=== PATIENT | female | born 1965 | race Caucasian/White ===

== ENCOUNTER 2016-11-04 18:27 | Emergency (ER) | payer OTHER ==
[2016-11-04 18:33] VITALS: BP 121/78; PULSE 100; TEMP 102.6; BMI 29.2
[2016-11-04] MEDS ORDERED: IBUPROFEN 400 MG TABLET (FP) PO ONE ×2 (21:27→22:01)
[2016-11-04 21:53] LABS: URINE APPEARANCE CLEAR; URINE BILIRUBIN NEGATIVE (NEGATIVE); URINE COLOR STRAW; URINE GLUCOSE (UA) NEGATIVE (NEGATIVE); URINE KETONE NEGATIVE (NEGATIVE); URINE LEUK ESTERASE NEGATIVE (NEGATIVE); URINE NITRITE NEGATIVE (NEGATIVE); URINE UROBILINOGEN NEGATIVE E.U./dl (0.2-1.0)
[2016-11-04 21:55] LABS: URINE BLOOD 3+ (NEGATIVE); URINE PROTEIN 2+ (NEGATIVE)
[2016-11-04 21:57] LABS: URINE BACTERIA RARE /hpf (NONE SEEN); URINE MUCUS RARE; URINE RBC 66 /hpf (0-3); URINE WBC 2 /hpf (3-5)
--- NOTE | 2016-11-04 22:51 | PDOC ---
History of Present Illness - General Chief Complaint: Cold Symptoms Stated Complaint: FEVER/SORE THROAT Time Seen by Provider: 11/04/16 21:04 History Source: Patient Exam Limitations: No Limitations - History of Present Illness Initial Comments: 11/04/16 22:48 CC fever, sore throat x 3 days; no NVD Severity: mild Associated Symptoms: reports: denies symptoms, cough, fever/chills, headaches, malaise. denies: nausea/vomiting Past History - Past Medical History Allergies/Adverse Reactions: Allergies Allergy/AdvReac Type Severity Reaction Status Date / Time No Known Allergies Allergy Verified 11/04/16 18:34 Home Medications: Ambulatory Orders No Home Medications 0 dose .ROUTE UTDICT 12/28/13 Anemia: No Cancer: No Cardiac Disorders: No COPD: No Diabetes: No HTN: No Suicide Attempt (Hx): No - Psycho/Social/Smoking Cessation Hx Suicidal Ideation: No Smoking Status: No Smoking History: Never smoked Number of Cigarettes Smoked Daily: 0 Information on smoking cessation initiated: No Review of Systems - Review of Systems Constitutional: Yes: Chills, Fever, Malaise. No: Symptoms Reported HEENTM: Yes: Nose Pain, Nose Congestion Respiratory: Yes: Cough. No: Symptoms reported, Stridor, Wheezing, Hemoptysis ABD/GI: Yes: Diarrhea (x 3 days ago). No: Symptoms Reported, Nausea, Vomiting *Physical Exam - Vital Signs Last Vital Signs Temp Pulse Resp BP Pulse Ox 102.6 F H 100 H 18 121/78 97 11/04/16 18:30 11/04/16 18:30 11/04/16 18:30 11/04/16 18:30 11/04/16 18:30 - Physical Exam HEENT: positive: TMs Normal, Pharynx Normal (post nasal drip) Neck: positive: Supple. negative: Tender, Rigid, Lymphadenopathy (R), Lymphadenopathy (L) Respiratory/Chest: positive: Lungs Clear. negative: Chest Tender, Labored Respiration Cardiovascular: positive: Regular Rhythm, Regular Rate. negative: Murmur Gastrointestinal/Abdominal: positive: Normal Bowel Sounds, Soft. negative: Tender, Organomegaly ED Treatment Course - ADDITIONAL ORDERS Additional order review: Laboratory Results 11/04/16 21:40 Urine Color Straw Urine Appearance Clear Urine pH 6.0 Ur Specific [place] 1.010 Urine Protein 2+ H Urine Glucose (UA) Negative Urine Ketones Negative Urine Blood 3+ H Urine Nitrite Negative Urine Bilirubin Negative Urine Urobilinogen Negative Ur Leukocyte Esterase Negative Urine RBC 66 Urine WBC 2 Ur Epithelial Cells Rare Urine Bacteria Rare Urine Mucus Rare Urine HCG, Qual Negative - RADIOLOGY Radiology Studies Ordered: Category Date Time Status CHEST PA & LAT [RAD] Stat Radiology 11/04/16 21:27 Taken - Medications Given in the ED: ED Medications Discontinued Medications Generic Name Dose Route Start Last Admin Trade Name Freq PRN Reason Stop Dose Admin Ibuprofen 400 mg 11/04/16 21:27 11/04/16 22:02 Motrin - PO 11/04/16 21:28 400 mg ONCE ONE Administration Medical Decision Making - Medical Decision Making 11/04/16 22:50 feeling better post motrin; chest xray= negative *DC/Admit/Observation/Transfer Diagnosis at time of Disposition: Viral respiratory infection - Discharge Dispostion Disposition: HOME Condition at time of disposition: Stable Admit: No - Patient Instructions Additional Instructions: motrin for fever; rest at home - Post Discharge Activity Work/School Note: Back to Work
== END 2016-11-04 22:56 | disposition home or self-care (01) ==
LOC: JERFT 18:27
DX: J06.9 Acute upper respiratory infection, unspecified (principal); B97.89 Other viral agents as the cause of diseases classified elsewhere
CPT/HCPCS: 71020-TC; 81003; 81015; 84703; 99281-25

== ENCOUNTER 2018-07-17 05:26 | Day surgery (SDC) | payer OTHER ==
[2018-07-16 16:46] VITALS: BMI 29.8
--- NOTE | 2018-07-17 11:34 | HP ---
History & Physical Update - History History: No Change Currently as noted:: Left Bartholin Cyst - Physical Physical: No Change - Assessment Assessment: No Change - Plan Plan: No Change Currently as noted:: Left Bartholin cyst marsupialization
[2018-07-17] MEDS ORDERED: MIDAZOLAM HCL 2 MG/2 ML SINGLE DOSE VIAL ONE (11:35)
[2018-07-17] MEDS ORDERED: PROPOFOL 20 ML ONE ×2 (11:41)
--- NOTE | 2018-07-17 12:24 | OP ---
Operative Note - Note: Operative Date: 07/17/18 Pre-Operative Diagnosis: Left Bartolin cyst Operation: Marsupialization of left Bartholin cyst Findings: Left Bartholin cyst Post-Operative Diagnosis: Same as Pre-op Surgeon: Bird Gross Supervisor [employer]: Joseph Mcgovern Anesthesiologist/FINANCIAL AID ADVISOR: Dior Pro MD Anesthesia: General Estimated Blood Loss (mls): 5 Blood Volume Replaced (mls): 0 Fluid Volume Replaced (mls): 700 Operative Report Dictated: Yes
[2018-07-17 13:57] VITALS: TEMP 97.4
--- NOTE | 2018-07-17 15:05 | OP ---
DATE OF OPERATION: 07/17/2018 PREOPERATIVE DIAGNOSIS: Left Bartholins cyst. POSTOPERATIVE DIAGNOSIS: Left Bartholins cyst. PROCEDURE: Marsupialization of left Bartholins cyst. SURGEON: Bird Gross MD TAILOR'S AIDE: Joseph Mcgovern MD ANESTHESIA: General. ANESTHESIOLOGIST: Dior Pro MD COMPLICATIONS: None. ESTIMATED BLOOD LOSS: 5 mL. INTRAVENOUS FLUIDS: 700 mL. FINDINGS: Examination under anesthesia revealed a large left Bartholins cyst tracking deep into the left labia and with fluctuance. Upon incision, serosanguinous as well as thick fibrinous material was evacuated. DESCRIPTION OF PROCEDURE: The patient was met preoperatively. Risks, benefits, and alternatives of surgery were discussed. All questions were answered. The patient verbalized understanding and agreed to proceed with the surgery. The consent form was also reviewed, and once again, all questions were answered. The patient signed the consent form and requested to proceed. The patient was then brought to the OR with IV running. She was placed on the surgical table in the supine position. General anesthesia was achieved without difficulty. The patient was then placed in a dorsal lithotomy position using adjustable Sam stirrups. She was examined under anesthesia with the findings as described above. The patient was then prepped and draped in the usual sterile fashion. A time-out procedure was conducted as per standard protocol. The left Bartholins cyst was then identified, and an incision was made inside the vagina behind the hymenal ring. The incision was carried down to the inside of the Bartholins cyst. The cyst was opened and all of the contents were evacuated. The internal space of the cyst was explored to break down all of the adhesions and loculations. There was no evidence of infection. Some of the cyst material showed blood clots as well as serosanguinous and fibrinous material. At that point, the edges of the wound were sutured to approximate the cyst capsule with the vaginal mucosa. The wound was sutured with several 2-0 interrupted sutures circumferentially. Care was taken to achieve good hemostasis. Once this was accomplished, the patient was examined, and there was no residual cyst. Once again, good hemostasis was noted. The wound was irrigated. Once again, good hemostasis was noted. At that point, the procedure was terminated. The patient was placed in a supine position and transferred to recovery room in stable condition. Sponge, lap, and instrument counts were correct. Chucky [id number]
[2018-07-17 15:43] VITALS: BP 110/75; PULSE 65
== END 2018-07-17 15:40 | disposition home or self-care (01) ==
LOC: JASU-SURG 05:26
PROVIDERS: ATTEND Obstetrics & Gynecology
PROC: 0U9L0ZZ Drainage of Vestibular Gland, Open Approach (ICD-10-PCS; principal; 2018-07-17 11:00)
DX: N75.0 Cyst of Bartholin's gland (principal)
CPT/HCPCS: 94010; 94760

== ENCOUNTER 2019-06-07 02:35 | Inpatient (IN) | payer OTHER ==
[2019-06-07 02:43] VITALS: BMI 27.8
[2019-06-07] MEDS ORDERED: morphine CARPU-JECT 4 MG/1 ML DISP.SYRIN IVPUSH ONE (02:44)
--- NOTE | 2019-06-07 03:01 | PDOC ---
History of Present Illness - General Chief Complaint: Injury Stated Complaint: RIGHT ANKLE PAIN Time Seen by Provider: 06/07/19 02:43 History Source: Patient, Family Exam Limitations: Language Barrier - History of Present Illness Initial Comments: 06/07/19 02:59 54y F with no significant PMH presenting to ED with complaints of R ankle pain after missing a step. Patient was going down the stairs for work when she missed a step due it it being dark and she twisted the R ankle. She did not hit her head or lose consciousness. Family called EMS. Pt endorses pain in the ankle. Denies numbness/tingling, back pain, knee pain, hip pain. PMD: PMH: none PSH: none Meds: none Allergies: nkda Past History - Past Medical History Allergies/Adverse Reactions: Allergies Allergy/AdvReac Type Severity Reaction Status Date / Time No Known Allergies Allergy Verified 06/07/19 02:42 Home Medications: Ambulatory Orders Cephalexin Monohydrate [Keflex -] 500 mg PO BID 7 Days #14 capsule 07/17/18 Ibuprofen [Motrin -] 600 mg PO QID PRN #28 tablet 07/17/18 Anemia: No Asthma: No Cancer: No Cardiac Disorders: No CVA: No COPD: No CHF: No Dementia: No Diabetes: No GI Disorders: No Disorders: No HTN: No Hypercholesterolemia: No Liver Disease: No Seizures: No Thyroid Disease: No - Psycho Social/Smoking Cessation Hx Smoking Status: No Smoking History: Never smoked Number of Cigarettes Smoked Daily: 0 Hx Alcohol Use: No Drug/Substance Use Hx: No Substance Use Type: Alcohol Review of Systems - Review of Systems Constitutional: No: Symptoms Reported HEENTM: No: Symptoms Reported Respiratory: No: Symptoms reported Cardiac (ROS): No: Symptoms Reported ABD/GI: No: Symptoms Reported : No: Symptoms Reported Musculoskeletal: Yes: See HPI Integumentary: No: Symptoms Reported Neurological: No: Symptoms reported *Physical Exam - Vital Signs Last Vital Signs Temp Pulse Resp BP Pulse Ox 97.8 F 81 16 163/92 100 06/07/19 02:40 06/07/19 02:40 06/07/19 02:40 06/07/19 02:40 06/07/19 02:40 - Physical Exam General Appearance: Yes: Nourished, Appropriately Dressed, Severe Distress HEENT: positive: EOMI, RUTHANN Neck: positive: Trachea midline, Supple Respiratory/Chest: positive: Lungs Clear, Normal Breath Sounds. negative: Crackles, Rales, Rhonchi, Stridor, Wheezing Cardiovascular: positive: Regular Rhythm, Regular Rate, S1, S2. negative: Edema , JVD, Murmur Vascular Pulses: Dorsalis-Pedis (R): 2+, Doralis-Pedis (L): 2+ Gastrointestinal/Abdominal: positive: Normal Bowel Sounds, Soft. negative: Tender Musculoskeletal: positive: Other (R ankle swelling and tendernes to palpation) Extremity: positive: Normal Capillary Refill. 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 NML intact, Fully Oriented, Alert, Normal Mood/ Affect, Normal Response, Motor Strength 5/5 Procedures - Splinting Splint Location: Right: Ankle Hand-Made Type: orthoglass Splint Type: Yes: Posterior Post-Proc Neuro Vasc Exam: normal Poncho Bandage: yes Sling: No Complications: No ED Treatment Course - LABORATORY CBC & Chemistry Diagram: 06/07/19 03:05 06/07/19 06:09 - RADIOLOGY Radiology Studies Ordered: Category Date Time Status ANKLE & FOOT-RIGHT* [RAD] Stat Radiology 06/07/19 02:43 Ordered Medical Decision Making - Medical Decision Making 06/07/19 06:31 54y F presenting to ED with complaitns of R ankle pain vitals wnl ddx: likely fracture w/wo dislocation, ligamentous injury -morphine -xr -preop labs trimaleolar fracture seen on xr without dislocation ortho consulted: posterior splint w f/u. splint placed. -toradol. due to patient being in hospital, difficulty with amulation with crutches and pain, will have ortho see patient here in hospital. pt pain controlled at the moment. ortho paged again at 0630 06/07/19 06:50 06/07/19 07:07 waiting for ortho consult signed out to day team Discharge - Discharge Information Problems reviewed: Yes Clinical Impression/Diagnosis: Trimalleolar fracture Qualifiers: Encounter type: initial encounter Fracture type: closed Laterality: right Qualified Code(s): S82.851A - Displaced trimalleolar fracture of right lower leg , initial encounter for closed fracture Condition: Good Disposition: HOME - Admission No - Follow up/Referral Referrals: Adrien Rain MD [Primary Care Provider] - Jerman Pena MD [Staff Physician] - Manny Marquez MD [Staff Physician] - - Patient Discharge Instructions Patient Printed Discharge Instructions: DI for Ankle Fracture Additional Instructions: You were seen in the emergency room today for an ankle fracture. It is called a trimaleolar fracture. You need to see the orthopedist today between 8am and 12pm. The contact information is provided below. Do not put any weight on the right foot! You can take Tylenol or ibuprofen for the pain as needed. Come back to the emergency room - Post Discharge Activity
[2019-06-07] MEDS ORDERED: morphine SULFATE 4 MG/ML VIAL ONE (03:22)
[2019-06-07 03:24] LABS: BASO % 0.8 % (0-2.0); HEMATOCRIT 38.2 % (32.4-45.2); HEMOGLOBIN 13.1 GM/dL (10.7-15.3); LYMPH % 37.8 % (8-40); MCH 28.6 pg (25.7-33.7); MCHC 34.3 g/dl (32.0-36.0); MEAN CELL VOLUME 83.4 fl (80-96); NEUT % 53.4 % (42.8-82.8); PLATELET COUNT 345 K/MM3 (134-434); RBC 4.59 M/mm3 (3.60-5.2); RDW 15.5 % (11.6-15.6); WHITE BLOOD COUNT 9.1 K/mm3 (4.0-10.0)
--- NOTE | 2019-06-07 03:58 | PDOC ---
Attending Attestation - Resident Resident Name: Kristel Kwong - ED Attending Attestation I have performed the following: I have examined & evaluated the patient, The case was reviewed & discussed with the resident, I agree w/resident's findings & plan - HPI HPI: 06/07/19 05:00 Pt was ouside of her home going to work; streetlights don't work and she couldn' t see the pavement and steps and she fell and broke her ankle. Now with exquisite pain. 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 She has swollen and deformed right ankle. - Physicial Exam PE: 06/07/19 05:02 Agree with resident exam Pt has normal DP and PT pulses; however she has exquisite tenderness with palpation of the ankle lateral mal and medial mal. - Medical Decision Making 06/07/19 03:57 Pt has a trimalleolar fracture 06/07/19 05:08 Ortho will see her in the office or in the ER today btwn 8am and 12noon. Pt in exquisite pain and she will be treated with more morphine; unable to ambulate with crutches with morphone on board.
[2019-06-07] MEDS ORDERED: KETOROLAC TROMETHAMINE 15 MG/ML VIAL IVPUSH ONE (04:24)
[2019-06-07] MEDS ORDERED: KETOROLAC TROMETHAMINE 15 MG/ML VIAL ONE (04:44)
[2019-06-07 06:39] LABS: BILIRUBIN,TOTAL 0.3 mg/dL (0.2-1); BLOOD UREA NITROGEN 14.6 mg/dL (7-18); CALCIUM 8.2 mg/dL (8.5-10.1); CREATININE 0.9 mg/dL (0.55-1.3); POTASSIUM 3.7 mmol/L (3.5-5.1); TOT PROT 6.6 g/dl (6.4-8.2)
--- NOTE | 2019-06-07 07:39 | PDOC ---
*Physical Exam - Vital Signs Last Vital Signs Temp Pulse Resp BP Pulse Ox 98.6 F 68 18 143/80 98 06/07/19 06:31 06/07/19 06:31 06/07/19 06:31 06/07/19 06:31 06/07/19 06:31 ED Treatment Course - LABORATORY CBC & Chemistry Diagram: 06/07/19 03:05 06/07/19 06:09 - ADDITIONAL ORDERS Additional order review: Laboratory Results 06/07/19 06/07/19 06/07/19 06:09 06:09 06:09 PT with INR INR PTT (Actin FS) 38.5 H Sodium 141 Potassium 3.7 Chloride 108 H Carbon Dioxide 28 Anion Gap 6 L BUN 14.6 Creatinine 0.9 Est GFR (CKD-EPI)AfAm 85.20 Est GFR (CKD-EPI)NonAf 73.51 Random Glucose 143 H Calcium 8.2 L Total Bilirubin 0.3 AST 17 ALT 22 Alkaline Phosphatase 122 H Total Protein 6.6 Albumin 3.0 L Blood Type A POSITIVE Antibody Screen Negative 06/07/19 06/07/19 06/07/19 03:05 03:05 03:05 PT with INR Cancelled INR Cancelled PTT (Actin FS) Sodium Cancelled Potassium Cancelled Chloride Cancelled Carbon Dioxide Cancelled Anion Gap Cancelled BUN Cancelled Creatinine Cancelled Est GFR (CKD-EPI)AfAm Cancelled Est GFR (CKD-EPI)NonAf Cancelled Random Glucose Cancelled Calcium Cancelled Total Bilirubin Cancelled AST Cancelled ALT Cancelled Alkaline Phosphatase Cancelled Total Protein Cancelled Albumin Cancelled Blood Type Cancelled Antibody Screen Cancelled 06/07/19 03:05 PT with INR INR PTT (Actin FS) Cancelled Sodium Potassium Chloride Carbon Dioxide Anion Gap BUN Creatinine Est GFR (CKD-EPI)AfAm Est GFR (CKD-EPI)NonAf Random Glucose Calcium Total Bilirubin AST ALT Alkaline Phosphatase Total Protein Albumin Blood Type Antibody Screen 06/07/19 03:05 RBC 4.59 MCV 83.4 MCHC 34.3 RDW 15.5 MPV 9.0 D Neutrophils % 53.4 Lymphocytes % 37.8 D Monocytes % 6.0 Eosinophils % 2.0 Basophils % 0.8 - Medications Given in the ED: ED Medications Discontinued Medications Generic Name Dose Route Start Last Admin Trade Name Freq PRN Reason Stop Dose Admin Ketorolac Tromethamine 15 mg 06/07/19 04:24 06/07/19 05:18 Toradol Injection - IVPUSH 06/07/19 04:25 15 mg ONCE ONE Administration Morphine Sulfate 4 mg 06/07/19 02:44 06/07/19 03:36 Morphine Injection - IVPUSH 06/07/19 02:45 4 mg ONCE ONE Administration Medical Decision Making - Medical Decision Making 06/07/19 07:24 54y F with no significant PMH presenting to ED with here with right ankle trimaleolar fx found on XR. Pain improved with morphine and toradol. Ortho consulted and placed in a posterior splint; will assess patient this AM Vitals stable. Pain controlled at rest. No current complaints. Awaiting ortho eval 06/07/19 09:00 Ortho to take to OR in PM NPO, pain control EKG, 2nd T&S sent Admit to hospitalist; per ortho will likely stay at least [address] Webber Discharge - Discharge Information Problems reviewed: Yes Clinical Impression/Diagnosis: Trimalleolar fracture Qualifiers: Encounter type: initial encounter Fracture type: closed Laterality: right Qualified Code(s): S82.851A - Displaced trimalleolar fracture of right lower leg , initial encounter for closed fracture Condition: Good - Admission Yes - Follow up/Referral - Patient Discharge Instructions - Post Discharge Activity
[2019-06-07 07:45] LABS: INR 1.07 (0.83-1.09); PROTHROMBIN TIME (PATIENT) 12.6 SEC (9.7-13.0)
--- NOTE | 2019-06-07 08:32 | CON.ORTH ---
Consult Reason for Consultation:: right ankle fx - Alcohol/Substance Use Hx Alcohol Use: No - Smoking History Smoking history: Never smoked Aproximately how many cigarettes per day: 0 Home Medications - Allergies Allergies/Adverse Reactions: Allergies Allergy/AdvReac Type Severity Reaction Status Date / Time No Known Allergies Allergy Verified 06/07/19 02:42 - Home Medications Home Medications: Ambulatory Orders Cephalexin Monohydrate [Keflex -] 500 mg PO BID 7 Days #14 capsule 07/17/18 Ibuprofen [Motrin -] 600 mg PO QID PRN #28 tablet 07/17/18 Physical Exam for Ortho Vital Signs: Vital Signs Temperature 98.6 F 06/07/19 06:31 Pulse Rate 68 06/07/19 06:31 Respiratory Rate 18 06/07/19 06:31 Blood Pressure 143/80 06/07/19 06:31 O2 Sat by Pulse Oximetry (%) 98 06/07/19 06:31 Labs: CBC, BMP 06/07/19 03:05 06/07/19 06:09 INR, PTT INR 1.07 (0.83-1.09) 06/07/19 06:09 - Lower Extremity Ankle: Yes: Right, Limited ROM, Pain, Swelling, Tenderness, Other (splint intact , nvi) Imaging - Results X-ray: Image Reviewed Assessment/Plan 54y F with no significant PMH presenting to ED with complaints of R ankle pain after missing a step. Patient was going down the stairs for work when she missed a step due it it being dark and she twisted the R ankle. She did not hit her head or lose consciousness. Family called EMS. Pt endorses pain in the ankle. Denies numbness/tingling, back pain, knee pain, hip pain. a/p right ankle displaced trimall fx Risks and benefits were d/w pt in detail OR today for ORIF surgical clearance NPO d/w Dr. Marquez
[2019-06-07] MEDS ORDERED: morphine CARPU-JECT 2 MG/1 ML DISP.SYRIN IVPUSH ONE (08:51)
[2019-06-07] MEDS ORDERED: MORPHINE SULFATE 2 MG/ML VIAL ONE (08:58)
--- NOTE | 2019-06-07 09:39 | HP ---
CHIEF COMPLAINT: R ankle pain s/p mechanical fall PCP: Dr. Rain HISTORY OF PRESENT ILLNESS: 54F w/ no significant pmhx presents in the ED for R ankle pain. States this morning when she was leaving his apartment building, it was dark and she missed a step walking out of her building. Denies head trauma or loc after her fall. States this is the first time she has had a mechanical fall. Denies any headache /dizziness, chest pain, sob, or other associated symptoms prior to the fall. Pt says she twisted her R ankle and was unable to move it due to severe pain. Also admits to scraping her L knee on the concrete after she fell, but reports only minimal pain and is still able to move her L leg. Denies numbness or tingling in legs, back pain, hip pain or knee pain. 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 Home Medications Medication Instructions Recorded NK [No Known Home Medication] 06/07/19 REVIEW OF SYSTEMS CONSTITUTIONAL: Absent: fever, chills, diaphoresis, generalized weakness, malaise, loss of appetite, weight change HEENT: Absent: rhinorrhea, nasal congestion, throat pain, throat swelling, difficulty swallowing, mouth swelling, ear pain, eye pain, visual changes CARDIOVASCULAR: Absent: chest pain, syncope, palpitations, irregular heart rate, lightheadedness , peripheral edema RESPIRATORY: Absent: cough, shortness of breath, dyspnea with exertion, orthopnea, wheezing, stridor, hemoptysis GASTROINTESTINAL: Absent: abdominal pain, abdominal distension, nausea, vomiting, diarrhea, constipation, melena, hematochezia GENITOURINARY: Absent: dysuria, frequency, urgency, hesitancy, hematuria, flank pain, genital pain MUSCULOSKELETAL: +R ankle pain, limited ROM, R ankle swelling Absent: myalgia, arthralgia, joint swelling, back pain, neck pain SKIN: Absent: rash, itching, pallor HEMATOLOGIC/IMMUNOLOGIC: Absent: easy bleeding, easy bruising, lymphadenopathy, frequent infections ENDOCRINE: Absent: unexplained weight gain, unexplained weight loss, heat intolerance, cold intolerance NEUROLOGIC: Absent: headache, focal weakness or paresthesias, dizziness, unsteady gait, seizure, mental status changes, bladder or bowel incontinence PSYCHIATRIC: Absent: anxiety, depression, suicidal or homicidal ideation, hallucinations. PHYSICAL EXAMINATION Vital Signs - 24 hr 06/07/19 06/07/19 06/07/19 02:40 06:31 09:22 Temperature 97.8 F 98.6 F 98.1 F Pulse Rate 81 Pulse Rate [ 68 67 Left Brachial] Respiratory 16 18 18 Rate Blood Pressure 163/92 Blood Pressure 143/80 125/70 [Left Arm] O2 Sat by Pulse 100 98 99 Oximetry (%) GENERAL: AAOx3. NAD. HEENT: AT/NC. EOMI. MMM. Facial symmetry noted. NECK: Normal range of motion, supple without lymphadenopathy, JVD, or masses. LUNGS: CTA B/L. No wheezes, rhonchi or rales noted. Symmetric chest rise. HEART: RRR. Normal S1, S2. No murmurs noted. ABDOMEN: Soft, NT/ND. Normoactive bowel sounds in all 4Qs. No deformities/ masses noted. MUSCULOSKELETAL: Limited ROM in R foot due to pain. UPPER EXTREMITIES: 2+ pulses, warm, well-perfused. No cyanosis. No clubbing. No peripheral edema. LOWER EXTREMITIES: 2+ pulses, warm, well-perfused. No calf tenderness. No peripheral edema. NEUROLOGICAL: Cranial nerves II-XII intact. Normal speech. Gait not observed. SKIN: Warm, dry, normal turgor, no rashes or lesions noted, normal capillary refill. Laboratory Results - last 24 hr 06/07/19 06/07/19 06/07/19 03:05 03:05 03:05 WBC 9.1 RBC 4.59 Hgb 13.1 Hct 38.2 MCV 83.4 MCH 28.6 MCHC 34.3 RDW 15.5 Plt Count 345 MPV 9.0 D Absolute Neuts (auto) 4.8 Neutrophils % 53.4 Lymphocytes % 37.8 D Monocytes % 6.0 Eosinophils % 2.0 Basophils % 0.8 Nucleated RBC % 0 PT with INR INR PTT (Actin FS) Cancelled Sodium Cancelled Potassium Cancelled Chloride Cancelled Carbon Dioxide Cancelled Anion Gap Cancelled BUN Cancelled Creatinine Cancelled Est GFR (CKD-EPI)AfAm Cancelled Est GFR (CKD-EPI)NonAf Cancelled Random Glucose Cancelled Calcium Cancelled Total Bilirubin Cancelled AST Cancelled ALT Cancelled Alkaline Phosphatase Cancelled Total Protein Cancelled Albumin Cancelled Blood Type Antibody Screen 06/07/19 06/07/19 06/07/19 03:05 03:05 06:09 WBC RBC Hgb Hct MCV MCH MCHC RDW Plt Count MPV Absolute Neuts (auto) Neutrophils % Lymphocytes % Monocytes % Eosinophils % Basophils % Nucleated RBC % PT with INR Cancelled INR Cancelled PTT (Actin FS) 38.5 H Sodium Potassium Chloride Carbon Dioxide Anion Gap BUN Creatinine Est GFR (CKD-EPI)AfAm Est GFR (CKD-EPI)NonAf Random Glucose Calcium Total Bilirubin AST ALT Alkaline Phosphatase Total Protein Albumin Blood Type Cancelled Antibody Screen Cancelled 06/07/19 06/07/19 06/07/19 06:09 06:09 06:09 WBC RBC Hgb Hct MCV MCH MCHC RDW Plt Count MPV Absolute Neuts (auto) Neutrophils % Lymphocytes % Monocytes % Eosinophils % Basophils % Nucleated RBC % PT with INR 12.60 INR 1.07 PTT (Actin FS) Sodium 141 Potassium 3.7 Chloride 108 H Carbon Dioxide 28 Anion Gap 6 L BUN 14.6 Creatinine 0.9 Est GFR (CKD-EPI)AfAm 85.20 Est GFR (CKD-EPI)NonAf 73.51 Random Glucose 143 H Calcium 8.2 L Total Bilirubin 0.3 AST 17 ALT 22 Alkaline Phosphatase 122 H Total Protein 6.6 Albumin 3.0 L Blood Type A POSITIVE Antibody Screen Negative EKG: NSR, HR 70, QTc 466 ms, No evid of ST-T changes ASSESSMENT/PLAN: 54F w/ no significant pmhx presents in the ED for R ankle pain s/p mechanical fall. #Trimallelar fracture; 2/2 mechanical fall -R foot xray showed trimalleolar fx w/ widened mortise and swelling -Ortho consulted, scheduled for OR today for ORIF -IS/bedrest/SCDs -Pain/Nausea control PRN. Morphine 1 Q3 IVP, then add oxy after surgery -NPO Pt is a low risk candidate for this non-emergent intermediate procedure. She has no evid of cardiac arrhythmias, CHF or personal hx of heart/lung disease. She has good functional capacity and is independent. EKG showed QTc 466, it is advised to avoid QT-prolonging agents. Will start DVT ppx post-op. #Prophylaxis DVT: SCDs AYESHA -LR @ 125 -recheck lytes in AM -NPO for OR today Dispo -admit to med-surg Family Medical History Other Family History: Daughter- thyroid disease. Sister- breast cancer, diagnosed in her 30s Visit type - Emergency Visit Emergency Visit: Yes ED Registration Date: 06/07/19 Care time: The patient presented to the Emergency Department on the above date and was hospitalized for further evaluation of their emergent condition. - New Patient This patient is new to me today: Yes Date on this admission: 06/07/19 - Critical Care Critical Care patient: No ATTENDING PHYSICIAN STATEMENT I saw and evaluated the patient. I reviewed the resident's note and discussed the case with the resident. I agree with the resident's findings and plan as documented. SUBJECTIVE: OBJECTIVE: ASSESSMENT AND PLAN:
[2019-06-07] MEDS ORDERED: LACTATED RINGERS SOLUTION 1,000 ML IV SCH ×4 (09:45→15:09)
[2019-06-07] MEDS ORDERED: MORPHINE SULFATE 2 MG/ML VIAL IVPUSH PRN ×2 (10:09→15:09)
--- NOTE | 2019-06-07 10:31 | PN ---
Teaching Attending Note Name of Resident: Denita Montgomery ATTENDING PHYSICIAN STATEMENT I saw and evaluated the patient. I reviewed the resident's note and discussed the case with the resident. I agree with the resident's findings and plan as documented. SUBJECTIVE: CC: pain in R ankle after a fall HPI: 54 y/o lady with no significant PMH who presented with R ankle pain after a fall This am, while going down the stairs she missed a step. R ankle pain developed right after the fall. she denies any painin any other joints or bones at this time. she denies SOB, cough , fever, CP , palpitations, dysuria , abd pain or any other complaints. in ER and due to the pain she felt SOB and she was placed on 2 L of O2, without being hypoxic. She denies allergies, or any prescribed meds. OBJECTIVE: NAD, awake, alert, cooperative. slightly dry MM . No LAP in neck. CV: RRR, no MRG Lungs: CTAB Abd:soft, ND, NL BS , minimal discomfort in suprapubic area Ext : R leg and ankle in a cast. has nl sensation in R toes and DP 2+ b/l. L leg with no erythema or edema . Upper extremities with no edema . abrasion and scab on L knee. Neuro: round equal pupils, no facial droop. strength 5/5 in LUE, RUE, LLE proximally and distally . RLE neuro exam was deferred. MS: no TTP over L Knee, or LLE. Imaging: ankle xray and report reviewed. EKG : sinus rhythm, inverted TW in V1. QTC 466 ASSESSMENT AND PLAN: 54 y/o lady with no significant PMH who presented with R ankle pain after a fall 1- mechanical fal 2- R ankle trimalleolar Fx. Plan: - NPO for surgical repair - pain control , morphine for now, and add oxy to morphine after sx - NWB on RLE for now. will follow surgical Recs after - Pre-Op risk stratification: this a non emergent intermediate risk procedure. The patient herself, does not have any signs of ACS, CHF, or arrhythmias. she has no significant cardiac or pulmonary hx. She has a good functional capacity. EKG reviewed. She will be at low risk for jean paul-op cardiac complication for this intermediate risk procedure. No further cardiac w/u is indicated before the surgery. Recommend avoiding QTc prolonging anesthetic agents. - start DVT px after sx - PT eval tomorrow. Dispo : HLOC
[2019-06-07] MEDS ORDERED: MIDAZOLAM HCL 2 MG/2 ML SINGLE DOSE VIAL ONE (13:16)
[2019-06-07] MEDS ORDERED: ceFAZolin SODIUM 1 GM VIAL IVPB ONE (13:45)
--- NOTE | 2019-06-07 15:06 | EKG ---
Test Reason : Blood Pressure : / mmHG Vent. Rate : 070 BPM Atrial Rate : 070 BPM P-R Int : 174 ms QRS Dur : 086 ms QT Int : 432 ms P-R-T Axes : 038 052 032 degrees QTc Int : 466 ms NORMAL SINUS RHYTHM NORMAL ECG WHEN COMPARED WITH ECG OF 08-DEC-2012 18:46, NO SIGNIFICANT CHANGE WAS FOUND Confirmed by DOMENIC PARKER MD ([id number]) on 06/07/2019 3:06:35 PM Referred By: Confirmed By:DOMENIC PARKER MD
--- NOTE | 2019-06-07 15:08 | OP ---
Operative Note - Note: Operative Date: 06/07/19 ([facility]) Pre-Operative Diagnosis: right ankle trimall fx Operation: right ankle orif Post-Operative Diagnosis: Same as Pre-op Surgeon: Jerman Pena Anesthesia: General, Local Estimated Blood Loss (mls): 5 (tourniquet)
[2019-06-07] MEDS ORDERED: ONDANSETRON 4 MG/2 ML VIAL IVPUSH PRN (15:33)
[2019-06-07] MEDS: LACTATED RINGERS SOLUTION 1,000 ML IV SCH ×2 (17:11→21:37)
--- NOTE | 2019-06-07 17:56 | OP ---
DATE OF OPERATION: 06/07/2019 PREOPERATIVE DIAGNOSIS: Right bimalleolar ankle fracture. POSTOPERATIVE DIAGNOSIS: Right bimalleolar ankle fracture. PROCEDURE: Open reduction internal fixation right malleolar ankle fracture. SURGICAL ATTENDING: Jerman Pena MD ANESTHESIA: Regional and general. CLOSURE: [employer] from [employer] distal periarticular plate with appropriate screws and cannulated screws laterally, two 4-0 cannulated screws medially, 0 Vicryl fascia, 2-0 subcutaneous, gloria for skin. ESTIMATED BLOOD LOSS: Less than 100 mL. COMPLICATIONS: None. CONDITION: To recovery room in stable condition. DESCRIPTION OF PROCEDURE: The patient was taken to the operating room on June 07, 2019. General anesthesia with LMA was administered by the anesthesiologist as well as a regional block. IV Kefzol was administered prophylactically prior to the case. Right lower extremity was prepped and draped in the usual sterile fashion. An 8-cm longitudinal distal incision over the distal fibula was incised. Hemostasis achieved with Bovie electrocautery. Sharp dissection was carried down to the level of the fibula with full thickness down to the bone. A periosteal elevator was used to raise the periosteum to expose the fracture. Curettes and irrigation were used to clean up the fracture. It was an oblique fracture; however, there was an anterolateral piece of the distal tibia that was flipped. This area had to be flipped and repositioned in order to the get it into the appropriate position. It was then held in place while we did an ORIF of the fibula with a K-wire. A distal fibular plate of appropriate size was clamped to the lateral aspect of the fibula. Multiple screws proximally and distally were drilled, depth gauged, and screwed to the appropriate size of screws and type of screws. Initially cancellous nonlocking screws were used to fixate and cinch the plate to the bone. The rest of the screws were then locking screws then the nonlocking screws were removed and replaced with locking screws. Excellent rigid fixation was applied. A cannulated screw was then placed through that anterolateral piece, which was placed in the distal tibia and screwed into place achieving excellent fixation. The wound was irrigated. The fascia was closed 0 Vicryl, 2-0 for subcutaneous, and gloria for skin. Next, our attention was directed medially. A 5-cm curved longitudinal incision over the distal medial malleolus was incised down to the level of the bone. Curettes and irrigation were used to clean up the fracture. A 0.3 reduction clamp was used to hold the fracture in place. Two guidewires from the 4.0 cannulated screws were drilled from the tip of the medial malleolus into the distal tibia. Good placement was confirmed by fluoroscopy. They were then screwed to the appropriate length cancellous screw achieving excellent fixation and compression of the fracture. The wires were then removed. X-rays in the AP, mortis, and lateral views revealed excellent position of the hardware. The medial wound was then irrigated. The subcutaneous was closed with 2-0 Vicryl and gloria for skin. A Xeroform dressing was placed over both incisions followed by a U splint was applied. Patient was awakened from anesthesia and transferred to recovery in stable condition. No complications. Estimated blood loss less than 100 mL. No complications. Chucky [id number]
[2019-06-07] MEDS ORDERED: FLU VACCINE QUAD 60 MCG/0.5 ML (MDV 19-20) IM ONE (19:00)
[2019-06-07] MEDS ORDERED: CEFAZOLIN 2 GM/D5W 2 GM/50 ML ML IVPB SCH (21:00)
[2019-06-07] MEDS ORDERED: ceFAZolin SODIUM 1 GM VIAL ONE (21:21)
[2019-06-07] MEDS ORDERED: DEXTROSE 5%-WATER 100 ML IVPB ONE (21:21)
[2019-06-07] MEDS: CEFAZOLIN 2 GM in DEXTROSE 5%-WATER 100 ML IVPB SCH (21:37)
[2019-06-08] MEDS ORDERED: ceFAZolin SODIUM 1 GM VIAL ONE (02:26)
[2019-06-08] MEDS ORDERED: DEXTROSE 5%-WATER 100 ML IVPB ONE (02:26)
[2019-06-08] MEDS: CEFAZOLIN 2 GM in DEXTROSE 5%-WATER 100 ML IVPB SCH (02:29)
[2019-06-08] MEDS: LACTATED RINGERS SOLUTION 1,000 ML IV SCH (06:15)
[2019-06-08] MEDS ORDERED: ACETAMINOPHEN 325 MG TABLET (FP) PO PRN (10:33)
[2019-06-08] MEDS: oxyCODONE HCL 5 MG TABLET PO PRN ×2 (14:24→21:21)
--- NOTE | 2019-06-08 17:41 | PN ---
Teaching Attending Note Name of Resident: Ke Niño ATTENDING PHYSICIAN STATEMENT I saw and evaluated the patient. I reviewed the resident's note and discussed the case with the resident. I agree with the resident's findings and plan as documented. SUBJECTIVE: seen around 10 am controlled pain in R ankle . No pain in chest . no SOB. OBJECTIVE: NAD, awake, alert CV: RRR, no MRG Lungs: CTAB Ext: R leg and ankle and foot in a cast. toes are visible and she can wigglel them. DP 2+ . nl sensation ASSESSMENT AND PLAN: 54 y/o lady with no significant PMH who presented with R ankle pain after a fall 1- Mechanical fal 2- R ankle trimalleolar Fx. Plan: - S/p ORIF yesterday - PT eval - No weight baring on affected foot until she follows with ortho in 1 weel - pain control with tylenol and motrin after dc dc home
--- NOTE | 2019-06-08 17:57 | DS ---
Physical Exam: SUBJECTIVE: Patient seen and examined. Remains asymptomatic, afebrile without any issues or c/o. denies f/c/n/v/d, sob, chest pain. OBJECTIVE: Vital Signs Period Temp Pulse Resp BP Sys/Vaughan Pulse Ox Last 24 Hr 97.4 F-98.6 F 85-94 18-20 99-108/62-73 99 PHYSICAL EXAM GENERAL: The patient is awake, alert, and fully oriented, in no acute distress. EYES: PERRL, extraocular movements intact, ENT:oropharynx clear without exudates, moist mucous membranes. LUNGS: Breath sounds equal, clear to auscultation bilaterally, no wheezes, no crackles, HEART: Regular rate and rhythm, S1, S2 without murmur, rub or gallop. ABDOMEN: Soft, nontender, nondistended, normoactive bowel sounds, no guarding, no rebound, EXTREMITIES: 2+ pulses, warm, well-perfused, no edema. Right leg in splint NEUROLOGICAL: Cranial nerves II through XII grossly intact. PSYCH: Normal mood, normal affect. LABS CBC,CMP WBC 9.1 K/mm3 (4.0-10.0) 06/07/19 03:05 RBC 4.59 M/mm3 (3.60-5.2) 06/07/19 03:05 Hgb 13.1 GM/dL (10.7-15.3) 06/07/19 03:05 Hct 38.2 % (32.4-45.2) 06/07/19 03:05 MCV 83.4 fl (80-96) 06/07/19 03:05 MCH 28.6 pg (25.7-33.7) 06/07/19 03:05 MCHC 34.3 g/dl (32.0-36.0) 06/07/19 03:05 RDW 15.5 % (11.6-15.6) 06/07/19 03:05 Plt Count 345 K/MM3 (134-434) 06/07/19 03:05 MPV 9.0 fl (7.5-11.1) D 06/07/19 03:05 Absolute Neuts (auto) 4.8 K/mm3 (1.5-8.0) 06/07/19 03:05 Neutrophils % 53.4 % (42.8-82.8) 06/07/19 03:05 Lymphocytes % 37.8 % (8-40) D 06/07/19 03:05 Monocytes % 6.0 % (3.8-10.2) 06/07/19 03:05 Eosinophils % 2.0 % (0-4.5) 06/07/19 03:05 Basophils % 0.8 % (0-2.0) 06/07/19 03:05 Nucleated RBC % 0 % (0-0) 06/07/19 03:05 Sodium 141 mmol/L (136-145) 06/07/19 06:09 Potassium 3.7 mmol/L (3.5-5.1) 06/07/19 06:09 Chloride 108 mmol/L (98-107) H 06/07/19 06:09 Carbon Dioxide 28 mmol/L (21-32) 06/07/19 06:09 Anion Gap 6 MMOL/L (8-16) L 06/07/19 06:09 BUN 14.6 mg/dL (7-18) 06/07/19 06:09 Creatinine 0.9 mg/dL (0.55-1.3) 06/07/19 06:09 Est GFR (CKD-EPI)AfAm 85.20 06/07/19 06:09 Est GFR (CKD-EPI)NonAf 73.51 06/07/19 06:09 Random Glucose 143 mg/dL (74-106) H 06/07/19 06:09 Calcium 8.2 mg/dL (8.5-10.1) L 06/07/19 06:09 Total Bilirubin 0.3 mg/dL (0.2-1) 06/07/19 06:09 AST 17 U/L (15-37) 06/07/19 06:09 ALT 22 U/L (13-61) 06/07/19 06:09 Alkaline Phosphatase 122 U/L (45-117) H 06/07/19 06:09 Total Protein 6.6 g/dl (6.4-8.2) 06/07/19 06:09 Albumin 3.0 g/dl (3.4-5.0) L 06/07/19 06:09 Current Medications Acetaminophen (Tylenol -) 650 mg PO Q6H PRN PRN Reason: PAIN LEVEL 4 - 6 Lactated Ringer's (Lactated Ringers Solution) 1,000 mls @ 75 mls/hr IV [facility] Last Admin: 06/07/19 17:11 Dose: 0 mls Lactated Ringer's (Lactated Ringers Solution) 1,000 mls @ 125 mls/hr IV [facility] Last Admin: 06/08/19 06:15 Dose: 125 mls/hr Ondansetron HCl (Zofran Injection) 4 mg IVPUSH Q6H PRN PRN Reason: NAUSEA AND/OR VOMITING Oxycodone HCl (Roxicodone -) 5 mg PO Q6H PRN PRN Reason: PAIN LEVEL 7 - 10 Last Admin: 06/08/19 14:24 Dose: 5 mg Home Medications Medication Instructions Recorded Acetaminophen [Tylenol .Regular 650 mg PO Q6H PRN tablet 06/08/19 Strength -] Ibuprofen 400 mg PO Q6H PRN #25 tablet 06/08/19 Walker [Ultra-Light Rollator] 1 each [facility] DAILY #1 each 06/08/19 HOSPITAL COURSE: Date of Admission:06/07/19 54F w/ no significant pmhx presents in the ED for R ankle pain s/p mechanical fall. Pt was worked up for a right ankle trimalleolar fx seen on x-ray. Pt underwent orthopedic surgery- ORIF, with Dr. Perez and was post op on ppx antibiotics. Pt did well and remained asymptomatic, afebrile, without c/o. Pt was prescribed a walker and ibuprofen for pain and discharged home. Trimallelar fracture; 2/2 mechanical fall R foot xray showed trimalleolar fx w/ widened mortise and swelling Ortho consulted- performed ORIF IS/bedrest/SCDs Pain/Nausea control PRN. Morphine 1 Q3 IVP, then add oxy after surgery NPO Date of Discharge: 06/08/19 Minutes to complete discharge: 35 <Ke Niño - Last Filed: 06/09/19 13:15> Physical Exam: Correction to resident note: please disregard the last paragraph in hospital course <Akbar Adam - Last Filed: 06/19/19 16:32> Discharge Summary Problems reviewed: Yes Reason For Visit: TRIMALLEOLAR FRACTURE - Home Medications Comprehensive Discharge Medication List: Ambulatory Orders Acetaminophen [Tylenol .Regular Strength -] 650 mg PO Q6H PRN tablet 06/08/19 Ibuprofen 400 mg PO Q6H PRN #25 tablet 06/08/19 Walker [Ultra-Light Rollator] 1 each [facility] DAILY #1 each 06/08/19 <Ke Niño - Last Filed: 06/09/19 13:15> - Home Medications Comprehensive Discharge Medication List: Ambulatory Orders Acetaminophen [Tylenol .Regular Strength -] 650 mg PO Q6H PRN tablet 06/08/19 Ibuprofen 400 mg PO Q6H PRN #25 tablet 06/08/19 Walker [Ultra-Light Rollator] 1 each MC DAILY #1 each 06/08/19 <Akbar Adam - Last Filed: 06/19/19 16:32> Condition: Improved - Instructions Diet, Activity, Other Instructions: You were admitted to the hospital for a right ankle fracture from a fall, for which you needed surgery. While you were in the hospital, we evaluated you with lab work, blood work, imaging including X rays of your right foot, which showed a fracture of your ankle. You underwent surgery for your fracture and you were treated with pain medications to control your pain. You right leg was also placed in a splint to immobilize your foot. We will prescribe you a walker for you to use while you recover. Please make sure you use the walker at all times with ambulation, do not put any weight on the right foot until you follow up with your orthopedic surgeon. If you experience pain in your leg, please take Tylenol to relieve your pain. Do not exceed 3 grams of Tylenol a day. Please take all your medications as prescribed Follow up with your primary care physician in 1 week Please follow up with Dr. Jerman Pena, your orthopedic surgeon, in 1 week. Return to the emergency room, if you experience unbearable pain, chest pain, shortness of breath, nausea, vomiting, or worsening of your condition. Referrals: Adrien Rain MD [Primary Care Provider] - 1 Week Jerman Pena MD [Staff Physician] - 1 Week Disposition: HOME This patient is new to me today: Yes Date on this admission: 06/09/19 Emergency Visit: Yes ED Registration Date: 06/07/19 Care time: The patient presented to the Emergency Department on the above date and was hospitalized for further evaluation of their emergent condition. Critical Care patient: No - Discharge Referral Referred to [id number] No <Ke Niño - Last Filed: 06/09/19 13:15> ATTENDING PHYSICIAN STATEMENT I saw and evaluated the patient. I reviewed the resident's note and discussed the case with the resident. I agree with the resident's findings and plan as documented. SUBJECTIVE: OBJECTIVE: ASSESSMENT AND PLAN: <Ke Niño - Last Filed: 06/09/19 13:15> ATTENDING PHYSICIAN STATEMENT I saw and evaluated the patient. I reviewed the resident's note and discussed the case with the resident. I agree with the resident's findings and plan as documented. SUBJECTIVE: OBJECTIVE: ASSESSMENT AND PLAN: <Akbar Adam - Last Filed: 06/19/19 16:32>
[2019-06-09 09:26] VITALS: BP 133/84; PULSE 74; TEMP 98
[2019-06-09] MEDS: oxyCODONE HCL 5 MG TABLET PO PRN (09:28)
--- NOTE | 2019-06-09 09:28 | PN ---
Teaching Attending Note Name of Resident: Ke Niño ATTENDING PHYSICIAN STATEMENT I saw and evaluated the patient. I reviewed the resident's note and discussed the case with the resident. I agree with the resident's findings and plan as documented. SUBJECTIVE: Patient is feeling better, continues to have pain but controlled with pain meds. wants to home home. OBJECTIVE: Vital Signs Temperature 98 F 06/09/19 09:25 Pulse Rate 74 06/09/19 09:25 Respiratory Rate 20 06/08/19 23:24 Blood Pressure 133/84 06/09/19 09:25 O2 Sat by Pulse Oximetry (%) 99 06/08/19 21:00 GENERAL: The patient is awake, alert, and oriented, in no acute distress. HEAD: Normal with no signs of trauma. EYES: PERRL, extraocular movements intact, sclera anicteric, conjunctiva clear. ENT: Ears normal, oropharynx clear without exudates, moist mucous membranes. NECK: Trachea midline, full range of motion, supple. LUNGS: Breath sounds equal, clear to auscultation bilaterally, no wheezes, no crackles, no accessory muscle use. HEART: Regular rate and rhythm, S1, S2 without murmur, rub or gallop. ABDOMEN: Soft, NT,ND, normoactive bowel sounds, no guarding, no rebound, no hepatosplenomegaly, no masses. EXTREMITIES: 2+ pulses, warm, well-perfused, R leg and ankle and foot in a cast , able to wiggle the toes. NEUROLOGICAL: Cranial nerves II through XII grossly intact. Normal speech, gait not observed. PSYCH: Normal mood, normal affect. SKIN: Warm, dry, normal turgor, no rashes or lesions noted CBCD WBC 9.1 K/mm3 (4.0-10.0) 06/07/19 03:05 RBC 4.59 M/mm3 (3.60-5.2) 06/07/19 03:05 Hgb 13.1 GM/dL (10.7-15.3) 06/07/19 03:05 Hct 38.2 % (32.4-45.2) 06/07/19 03:05 MCV 83.4 fl (80-96) 06/07/19 03:05 MCHC 34.3 g/dl (32.0-36.0) 06/07/19 03:05 RDW 15.5 % (11.6-15.6) 06/07/19 03:05 Plt Count 345 K/MM3 (134-434) 06/07/19 03:05 MPV 9.0 fl (7.5-11.1) D 06/07/19 03:05 CMP Sodium 141 mmol/L (136-145) 06/07/19 06:09 Potassium 3.7 mmol/L (3.5-5.1) 06/07/19 06:09 Chloride 108 mmol/L (98-107) H 06/07/19 06:09 Carbon Dioxide 28 mmol/L (21-32) 06/07/19 06:09 Anion Gap 6 MMOL/L (8-16) L 06/07/19 06:09 BUN 14.6 mg/dL (7-18) 06/07/19 06:09 Creatinine 0.9 mg/dL (0.55-1.3) 06/07/19 06:09 Random Glucose 143 mg/dL (74-106) H 06/07/19 06:09 Calcium 8.2 mg/dL (8.5-10.1) L 06/07/19 06:09 Total Bilirubin 0.3 mg/dL (0.2-1) 06/07/19 06:09 AST 17 U/L (15-37) 06/07/19 06:09 ALT 22 U/L (13-61) 06/07/19 06:09 Alkaline Phosphatase 122 U/L (45-117) H 06/07/19 06:09 Total Protein 6.6 g/dl (6.4-8.2) 06/07/19 06:09 Albumin 3.0 g/dl (3.4-5.0) L 06/07/19 06:09 Current Medications Generic Name Dose Route Start Last Admin Trade Name Freq PRN Reason Stop Dose Admin Acetaminophen 650 mg 06/08/19 10:33 Tylenol - PO Q6H PRN PAIN LEVEL 4 - 6 Lactated Ringer's 1,000 mls @ 75 mls/hr 06/07/19 15:09 06/07/19 17:11 Lactated Ringers Solution IV 0 mls ASDIR BOB Administration Lactated Ringer's 1,000 mls @ 125 mls/hr 06/07/19 15:45 06/08/19 06:15 Lactated Ringers Solution IV 125 mls/hr ASDIR BOB Administration Ondansetron HCl 4 mg 06/07/19 15:33 Zofran Injection IVPUSH Q6H PRN NAUSEA AND/OR VOMITING Oxycodone HCl 5 mg 06/08/19 10:32 06/08/19 21:21 Roxicodone - PO 5 mg Q6H PRN Administration PAIN LEVEL 7 - 10 Home Medications Medication Instructions Recorded Acetaminophen [Tylenol .Regular 650 mg PO Q6H PRN tablet 06/08/19 Strength -] Ibuprofen 400 mg PO Q6H PRN #25 tablet 06/08/19 Walker [Ultra-Light Rollator] 1 each MC DAILY #1 each 06/08/19 ASSESSMENT AND PLAN: Patient is a 54 y/o female with no significant PMHx who presented with R ankle pain after a fall # Mechanical fall # R ankle trimalleolar Fx.s/p ORIF on 2018 - No weight baring on affected foot until she follows with ortho in 1 week, able to use the walker and was discussed with PT - Patient is being discharged home on pain control with tylenol and motrin with food.
[2019-06-09] MEDS: LACTATED RINGERS SOLUTION 1,000 ML IV SCH (11:00)
[2019-06-09] MEDS ORDERED: CELECOXIB 200 MG CAPSULE PO SCH (11:00)
[2019-06-09] MEDS ORDERED: IBUPROFEN 400 MG TABLET (FP) PO ONE (11:20)
--- NOTE | 2019-06-09 13:17 | PN ---
Physical Exam: SUBJECTIVE: Patient seen and examined. Remains asymptomatic, afebrile without any issues or c/o. denies f/c/n/v/d, sob, chest pain. OBJECTIVE: Vital Signs Last Vital Signs Temp Pulse Resp BP Pulse Ox 98 F 74 20 133/84 99 06/09/19 09:25 06/09/19 09:25 06/09/19 09:00 06/09/19 09:25 06/09/19 09:00 GENERAL: The patient is awake, alert, and fully oriented, in no acute distress. EYES: PERRL, extraocular movements intact, ENT:oropharynx clear without exudates, moist mucous membranes. LUNGS: Breath sounds equal, clear to auscultation bilaterally, no wheezes, no crackles, HEART: Regular rate and rhythm, S1, S2 without murmur, rub or gallop. ABDOMEN: Soft, nontender, nondistended, normoactive bowel sounds, no guarding, no rebound, EXTREMITIES: 2+ pulses, warm, well-perfused, no edema. Right leg in splint NEUROLOGICAL: Cranial nerves II through XII grossly intact. PSYCH: Normal mood, normal affect. CBC,CMP WBC 9.1 K/mm3 (4.0-10.0) 06/07/19 03:05 RBC 4.59 M/mm3 (3.60-5.2) 06/07/19 03:05 Hgb 13.1 GM/dL (10.7-15.3) 06/07/19 03:05 Hct 38.2 % (32.4-45.2) 06/07/19 03:05 MCV 83.4 fl (80-96) 06/07/19 03:05 MCH 28.6 pg (25.7-33.7) 06/07/19 03:05 MCHC 34.3 g/dl (32.0-36.0) 06/07/19 03:05 RDW 15.5 % (11.6-15.6) 06/07/19 03:05 Plt Count 345 K/MM3 (134-434) 06/07/19 03:05 MPV 9.0 fl (7.5-11.1) D 06/07/19 03:05 Absolute Neuts (auto) 4.8 K/mm3 (1.5-8.0) 06/07/19 03:05 Neutrophils % 53.4 % (42.8-82.8) 06/07/19 03:05 Lymphocytes % 37.8 % (8-40) D 06/07/19 03:05 Monocytes % 6.0 % (3.8-10.2) 06/07/19 03:05 Eosinophils % 2.0 % (0-4.5) 06/07/19 03:05 Basophils % 0.8 % (0-2.0) 06/07/19 03:05 Nucleated RBC % 0 % (0-0) 06/07/19 03:05 Sodium 141 mmol/L (136-145) 06/07/19 06:09 Potassium 3.7 mmol/L (3.5-5.1) 06/07/19 06:09 Chloride 108 mmol/L (98-107) H 06/07/19 06:09 Carbon Dioxide 28 mmol/L (21-32) 06/07/19 06:09 Anion Gap 6 MMOL/L (8-16) L 06/07/19 06:09 BUN 14.6 mg/dL (7-18) 06/07/19 06:09 Creatinine 0.9 mg/dL (0.55-1.3) 06/07/19 06:09 Est GFR (CKD-EPI)AfAm 85.20 06/07/19 06:09 Est GFR (CKD-EPI)NonAf 73.51 06/07/19 06:09 Random Glucose 143 mg/dL (74-106) H 06/07/19 06:09 Calcium 8.2 mg/dL (8.5-10.1) L 06/07/19 06:09 Total Bilirubin 0.3 mg/dL (0.2-1) 06/07/19 06:09 AST 17 U/L (15-37) 06/07/19 06:09 ALT 22 U/L (13-61) 06/07/19 06:09 Alkaline Phosphatase 122 U/L (45-117) H 06/07/19 06:09 Total Protein 6.6 g/dl (6.4-8.2) 06/07/19 06:09 Albumin 3.0 g/dl (3.4-5.0) L 06/07/19 06:09 Home Medications Medication Instructions Recorded Acetaminophen [Tylenol .Regular 650 mg PO Q6H PRN tablet 06/08/19 Strength -] Ibuprofen 400 mg PO Q6H PRN #25 tablet 06/08/19 Walker [Ultra-Light Rollator] 1 each MC DAILY #1 each 06/08/19 ASSESSMENT/PLAN: 54F w/ no significant pmhx presents in the ED for R ankle pain s/p mechanical fall. Pt was worked up for a right ankle trimalleolar fx seen on x-ray. Pt underwent orthopedic surgery- ORIF, with Dr. Perez and was post op on ppx antibiotics. Pt did well and remained asymptomatic, afebrile, without c/o. Pt was prescribed a walker and ibuprofen for pain and discharged home. Trimallelar fracture; 2/2 mechanical fall R foot xray showed trimalleolar fx w/ widened mortise and swelling Ortho consulted- performed ORIF IS/bedrest/SCDs Pain/Nausea control PRN. Morphine 1 Q3 IVP, then add oxy after surgery NPO Pt was discharged yesterday but did not leave till today morning. Visit type - Emergency Visit Emergency Visit: Yes ED Registration Date: 06/07/19 Care time: The patient presented to the Emergency Department on the above date and was hospitalized for further evaluation of their emergent condition. - New Patient This patient is new to me today: Yes Date on this admission: 06/09/19 - Critical Care Critical Care patient: No - Discharge Referral Referred to [facility] No ATTENDING PHYSICIAN STATEMENT I saw and evaluated the patient. I reviewed the resident's note and discussed the case with the resident. I agree with the resident's findings and plan as documented. SUBJECTIVE: OBJECTIVE: ASSESSMENT AND PLAN:
[2019-06-09] MEDS ORDERED: DOCUSATE SODIUM 100 MG CAPSULE (FP) PO SCH (22:00)
== END 2019-06-09 12:37 | disposition home or self-care (01) | DRG 313 ==
LOC: JER 02:35 → JERBED 08:53 → J6S 16:55
PROVIDERS: ADMIT Internal Medicine; ATTEND Internal Medicine
PROC: 0SSF04Z Reposition Right Ankle Joint with Internal Fixation Device, Open Approach (ICD-10-PCS; principal; 2019-06-07 14:30)
DX: S82.851A Displaced trimalleolar fracture of right lower leg, initial encounter for closed fracture (principal); W19.XXXA Unspecified fall, initial encounter; Y93.9 Activity, unspecified; Y92.89 Other specified places as the place of occurrence of the external cause
CPT/HCPCS: 36415; 73610-TC-RT-FY; 73630-TC-RT-FY; 76000-TC-FY; 80053; 85025; 85610; 85730; 86850; 86900; 86901; 93005; 93010; 94760; 97116-GP; 97161-GP; 99284-25; Q2036

== ENCOUNTER 2022-12-04 09:52 | Day surgery (SDC) | payer OTHER ==
[2022-12-03 11:29] VITALS: BMI 28.7
[2022-12-04 11:20] VITALS: TEMP 97.8
[2022-12-04 11:28] VITALS: BP 97/66; PULSE 66; RESP 19
== END 2022-12-04 11:45 | disposition home or self-care (01) ==
LOC: FASU-ENDO 09:52
PROVIDERS: ATTEND Internal Medicine Gastroenterology
PROC: 0DB68ZX Excision of Stomach, Via Natural or Artificial Opening Endoscopic, Diagnostic (ICD-10-PCS; 2022-12-04)
PROC: 0DB48ZX Excision of Esophagogastric Junction, Via Natural or Artificial Opening Endoscopic, Diagnostic (ICD-10-PCS; 2022-12-04)
PROC: 0DB98ZX Excision of Duodenum, Via Natural or Artificial Opening Endoscopic, Diagnostic (ICD-10-PCS; principal; 2022-12-04 10:59)
DX: R10.13 Epigastric pain (principal)
CPT/HCPCS: 88305-TC; 88342-TC

== ENCOUNTER 2023-02-26 09:40 | Day surgery (SDC) | payer OTHER ==
[2023-02-18 10:38] VITALS: BMI 28.7
[2023-02-26] MEDS ORDERED: PROPOFOL 100 ML ONE (10:33)
[2023-02-26] MEDS ORDERED: GLYCOPYRROLATE 0.2 MG/1 ML VIAL ONE (10:33)
[2023-02-26 11:46] VITALS: RESP 16; TEMP 97.6
[2023-02-26 12:11] VITALS: BP 134/79; PULSE 60
== END 2023-02-26 12:25 | disposition home or self-care (01) ==
LOC: FASU-ENDO 09:40
PROVIDERS: ATTEND Internal Medicine Gastroenterology
PROC: 0DJD8ZZ Inspection of Lower Intestinal Tract, Via Natural or Artificial Opening Endoscopic (ICD-10-PCS; principal; 2023-02-26 11:09)
DX: Z12.11 Encounter for screening for malignant neoplasm of colon (principal); K64.1 Second degree hemorrhoids; K64.8 Other hemorrhoids

== ENCOUNTER 2024-02-28 22:12 | Emergency (ER) | payer OTHER ==
[2024-02-28 22:42] VITALS: BMI 30.2
[2024-02-28 23:48] LABS: BASO % 0.7 % (0-2.0); EOS % 1.8 % (0-4.5); HEMATOCRIT 40.4 % (32.4-45.2); HEMOGLOBIN 13.2 GM/dL (10.7-15.3); LYMPH % 28.2 % (8-40); MCH 27.5 pg (25.7-33.7); MCHC 32.8 g/dl (32.0-36.0); MEAN CELL VOLUME 83.8 fl (80-96); MEAN PLT VOLUME 8.2 fl (7.5-11.1); MONO % 5.7 % (3.8-10.2); NEUT % 63.6 % (42.8-82.8); PLATELET COUNT 294 10^3/uL (134-434); RBC 4.82 M/mm3 (3.60-5.2); RDW 14.8 % (11.6-15.6); WHITE BLOOD COUNT 11.3 K/mm3 (4.0-10.0)
[2024-02-29 00:03] LABS: INR 0.98 (0.83-1.09); PROTHROMBIN TIME (PATIENT) 11.1 SEC (9.7-13.0)
[2024-02-29 00:04] LABS: CALCIUM 8.3 mg/dL (8.5-10.1)
[2024-02-29 00:06] LABS: ACTIVATED PTT 35.9 SECONDS (25.2-36.5); BLOOD UREA NITROGEN 19.6 mg/dL (7-18); MAGNESIUM 1.9 mg/dL (1.8-2.4)
[2024-02-29 00:10] LABS: BILIRUBIN,TOTAL 0.3 mg/dL (0.2-1)
[2024-02-29 00:11] LABS: TOT PROT 7.2 g/dl (6.4-8.2)
[2024-02-29 01:36] VITALS: BP 146/86; PULSE 80; RESP 19; TEMP 97.7
== END 2024-02-29 02:02 | disposition left against medical advice (07) ==
LOC: JER 22:12
DX: R07.89 Other chest pain (principal)
CPT/HCPCS: 36415; 71045-TC-FY; 80053; 83735; 84484; 85025; 85610; 85730; 93005; 93010; 99285-25